=== PATIENT | male | born 1960 | race Caucasian/White ===

== ENCOUNTER 2025-07-16 10:52 | Emergency (ER) | payer OTHER, SELFPAY ==
[2025-07-16 10:53] VITALS: BMI 27.3
[2025-07-16 11:27] VITALS: BP 185/108; PULSE 65; RESP 18; TEMP 36.6; O2SAT 98
--- NOTE | 2025-07-16 12:03 | XR_ITS ---
Examination: Hand, left 3 views Technique: Hand AP, oblique, lateral 3 views Date and time of exam: July 16, 2025, 1208 hrs. Indications: Laceration injury to the hand today with hand pain. Findings: Amputation of the ungual tuft tip distal phalanx thumb with large soft tissue defect No foreign body Impression: Amputation of the ungual tuft tip distal phalanx first digit
--- NOTE | 2025-07-16 12:06 | PD.EDHAND ---
Upper Extremity Injury RME/HPI General Chief Complaint: Hand/Wrist Problems Stated Complaint: CUT TO LEFT THUMB TODAY Time Seen by Provider: 07/16/25 11:36 Source: patient Arrival date/time: 07/16/25 10:52 Mode of arrival: ambulatory Limitations: no limitations RME / HPI RME / HPI narrative: Patient p/w laceration to left thumb after moving equipment. Patient is a local tanker truck driver, previously was a medic. does not take any blood thinners. Related Data Previous Rx's ?Medication ?Instructions ?Recorded amoxicillin 875 mg-potassium 1 tab PO Q12H #10 tabs 07/16/25 clavulanate 125 mg tablet Allergies Allergy/AdvReac Type Severity Reaction Status Date / Time bee venom protein (honey bee) Allergy Severe Anaphylaxis Verified 07/16/25 10:56 oxycodone Allergy Severe CONVULSIONS Verified 07/16/25 10:56 ED Exam General Limitations: Present no limitations General appearance: Present alert and in no apparent distress Head Head exam: Present atraumatic and normocephalic Eye Eye exam: Present normal appearance and PERRL ENT ENT exam: Present normal exam, normal oropharynx and mucous membranes moist Neck Neck exam: Present normal inspection and full ROM Chest Chest inspection: Present normal inspection and symmetric chest wall rise Respiratory Respiratory exam: Present normal lung sounds bilaterally; Absent respiratory distress, wheezes or stridor Cardiovascular Cardiovascular exam: Present regular rate and normal rhythm Abdominal Exam Abdominal exam: Present soft; Absent distention, tenderness or guarding Extremities Exam Extremities exam: Present other (left thumb with partial amputation of the distal tuft, no foreign body, no pulsatile bleed, slow bloody ooze, bone not exposed ) Neurological Exam Neurological exam: Present alert, oriented X3, CN II-XII intact and normal gait Psychiatric Psychiatric exam: Present normal affect and normal mood Skin Skin exam: Present warm and normal color Course Quality Measures none Orders Category Date Time Status XR hand comp LT min 3V Stat Exams 07/16/25 12:03 Completed Amoxicillin/Pot Clav 875 [Augmentin 875] Med 07/16/25 12:03 Discontinued 1 tab PO X1 ONE Lidocaine 1% 20 ml [Xylocaine 1% 20 ML] Med 07/16/25 12:06 Discontinued 10 ml INFL X1 ONE TET,DIP/PERT AC (Adult)-Tdap [Boostrix Adult (Tdap) Med 07/16/25 12:03 Discontinued Vacc] 0.5 ml IMI .ONCE ONE Vital Signs Vital signs: Vital Signs Temperature 97.9 F 07/16/25 11:27 Pulse Rate 65 07/16/25 11:27 Respiratory Rate 18 07/16/25 11:27 Blood Pressure 185/108 H 07/16/25 11:27 Pulse Oximetry (%) 98 07/16/25 11:27 Oxygen Delivery Method Room Air 07/16/25 11:27 Extremity Injury MDM Narrative MDM Narrative:: p/w Left hand trauma, left thumb. partial distal tuft amputation. xray identifies the injury. no foreign body. Patients wound was throughly irrigated. tdap updated. abx provided. patient is diabetic. laceration repaired as best as possible with non absobably sutures. 4 5-0 ethilon. irregular wound. digital ring block performed with 4cc 1% lidocaine w/o epi of thumb of left hand,. Patient tolerated procedure well no complications. dressed with xeroform. advised follow up with pcp in 7-10 days for wound check and suture removal. close return precautions provided. Patient data External records reviewed:: [facility] previous records Clinical information provided by:: patient and family Social determinants that could affect healthcare access:: none Patient has the following chronic illnesses:: see above How is presenting disease/condition affected by chronic disease/condition?: uneffected by Evaluation data The following diagnostics were reviewed and interpreted by me:: radiology exam(s) Lab and/or radiology exams considered but not ordered:: none Interpretation Summary: see above Medications / Prescriptions Medications or Prescriptions considered but not ordered:: none Medication administrations:: Medication Administration History Discontinued Medications Amoxicillin/Clavulanate Potassium (Amoxicillin/Pot Clav 875 Tablet) 1 tab PO X1 ONE Stop: 07/16/25 12:04 Last Admin: 07/16/25 14:35 Dose: 1 tab Documented By: Diphtheria/Tetanus/Acell Pertussis (Diphth,Pertuss(Acell),Tet Vac 0.5 Ml Syr- Adult) 0.5 ml IMi .ONCE ONE Stop: 07/16/25 12:04 Last Admin: 07/16/25 14:35 Dose: 0.5 ml Documented By: Lidocaine HCl (Lidocaine Hcl 1% 20 Ml Vial) 10 ml INFL X1 ONE Stop: 07/16/25 12:07 Last Admin: 07/16/25 14:34 Dose: 10 ml Documented By: see above Consultations Consultation(s) initiated? (list below): No Diagnosis Upper Extremity Injury Differential Diagnosis: finger sprain, fracture of hand, dislocation of shoulder and other (finger amputation ) Most likely diagnosis given after review of the tests above:: distal tuft amputation left thumb Admission Indicated Admission indicated?: not indicated Admission Request Was there a request for admission?: No Disposition Plan Disposition Plan: Discharge Discharge Attestation Discharge Attestation: The patient and all family members were given an opportunity to ask questions and understood the discharge instructions. Discharge instructions specifically effects, indications for sooner follow up or return to the emergency department, and the expected course of current diagnosis. Patient condition: Stable Discharge Plan Plan Patient Disposition: HOME (Self Care) Prescriptions/Referrals Prescriptions/Med Rec: New amoxicillin-pot clavulanate 875-125 mg tablet 1 tab PO Q12H Qty: 10 0RF Problem List Clinical Impression: Hand trauma Patient/Caregiver Discharge Instructions Other Activity Instructions:: Please follow-up with your primary care doctor within the next 1 to 2 days. Please request an appointment to see a hand specialist. Please monitor for signs of infection including swelling, purulent discharge . Return to the emergency room immediately if you have any of these findings or any other symptom of concern. Print Language: Ukrainian Stand Alone Forms: Carolyn Award Info., Work/School Release, Patient Portal Info Letter
[2025-07-16] MEDS: LIDOCAINE HCL 1% 20 ML VIAL 10 ML INFL (14:34)
[2025-07-16] MEDS: DIPHTH,PERTUSS(ACELL),TET VAC 0.5 ML SYR- ADULT IMi (14:35)
[2025-07-16] MEDS: AMOXICILLIN/POT CLAV 875 TABLET 1 TAB PO (14:35)
== END 2025-07-16 14:50 | disposition home or self-care (01) ==
LOC: SERX 13:16
PROVIDERS: Emergency Provider Emergency Medicine
DX: S61.012A Laceration without foreign body of left thumb without damage to nail, initial encounter (principal); W45.8XXA Other foreign body or object entering through skin, initial encounter; Z23 Encounter for immunization
CPT/HCPCS: 12001; 73130; 90471; 90715; 99282; J3490; A9270